=== PATIENT | female | born 1955 | race Caucasian/White ===

== ENCOUNTER 2016-11-04 15:41 | Emergency (ER) | payer OTHER, BC ==
[2016-11-04] MEDS ORDERED: DIAZEPAM 5MG/ML SOL IV ONE (15:50)
[2016-11-04] MEDS ORDERED: SODIUM CHLORIDE 0.9% 1000ML 1,000 ML IV ONE (15:50)
[2016-11-04] MEDS ORDERED: DIAZEPAM 5MG/ML SOL ONE (15:54)
[2016-11-04 16:10] LABS: CALCIUM 8.8 mg/dl (8.5-10.1); POTASSIUM 3.6 mMol/L (3.5-5.1)
[2016-11-04 16:18] VITALS: RESP 20; O2SAT 99
[2016-11-04 16:20] LABS: BASOPHILS % (AUTO) 2 % (0-3); EOSINOPHILS % (AUTO) 5 % (0-9); HEMATOCRIT 39 % (35-47); MEAN CORPUSCULAR HGB CONC 33.6 gm/dl (32.0-36.0); MEAN CORPUSCULAR VOLUME 91 fL (81-99); MONOCYTES % (AUTO) 8.7 % (0-12)
[2016-11-04] MEDS ORDERED: KETOROLAC TROMETHAMINE 30 MG/ML SOL IV ONE (17:56)
[2016-11-04] MEDS ORDERED: KETOROLAC TROMETHAMINE 30 MG/ML SOL ONE (17:57)
[2016-11-04 18:44] VITALS: BP 132/72; PULSE 71; TEMP 97.8
== END 2016-11-04 18:38 | disposition home or self-care (01) | DRG 552 ==
LOC: ED 15:41
DX: M54.2 Cervicalgia (principal); H92.02 Otalgia, left ear; M54.6 Pain in thoracic spine; M54.5 Low back pain; V43.54XA Car driver injured in collision with van in traffic accident, initial encounter; Y92.411 Interstate highway as the place of occurrence of the external cause; R42 Dizziness and giddiness
CPT/HCPCS: 36415; 72125; 72129; 72132; 80048; 85025; 99285; J1885; J3360